=== PATIENT | female | born 1945 | race Caucasian/White ===

== ENCOUNTER 2025-05-10 12:05 | Outpatient (CLI) | payer OTHER, SELFPAY | END 2025-05-10 12:06 | disposition home or self-care (01) | LOC: LKVREF 12:12 | PROVIDERS: Visit Provider Family Medicine | DX: Z00.00 Encounter for general adult medical examination without abnormal findings (principal); E51.9 Thiamine deficiency, unspecified; E10.9 Type 1 diabetes mellitus without complications; E78.00 Pure hypercholesterolemia, unspecified; I10 Essential (primary) hypertension; I48.91 Unspecified atrial fibrillation; R35.0 Frequency of micturition | CPT/HCPCS: 82306; 82607; 84425; 87086 ==

== ENCOUNTER 2025-06-14 13:03 | Outpatient (CLI) | payer OTHER, SELFPAY | END 2025-06-14 13:04 | disposition home or self-care (01) | LOC: LKVREF 13:10 | PROVIDERS: PCP Family Medicine; Visit Provider Family Medicine | DX: M81.0 Age-related osteoporosis without current pathological fracture (principal); R35.0 Frequency of micturition; E78.00 Pure hypercholesterolemia, unspecified; I10 Essential (primary) hypertension | CPT/HCPCS: 80053; 80061; 85610 ==

== ENCOUNTER 2025-06-23 08:55 | Outpatient (CLI) | payer OTHER, SELFPAY | END 2025-06-23 08:56 | disposition home or self-care (01) | LOC: NFLDREF 06-29 19:13 | PROVIDERS: PCP Family Medicine; Referring Provider Family Medicine; Visit Provider Family Medicine | DX: I48.91 Unspecified atrial fibrillation (principal); Z79.01 Long term (current) use of anticoagulants | CPT/HCPCS: 85610 ==